=== PATIENT | female | born 2000 | race Hispanic/Latino ===

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

== ENCOUNTER 2023-07-26 23:01 | Emergency (ER) | payer OTHER ==
[2023-07-27 00:08] LABS: BHCG - Serum Negative (NEGATIVE); Pregs Control Background? CLEAR/WHITE (CLR/WHITE); Pregs Control Bar Appear? YES (CONTROL BAR)
[2023-07-27] MEDS ORDERED: Ketorolac Tromethamine 30 MG (1 mL) VIAL ONE (00:37)
[2023-07-27] MEDS ORDERED: Acetaminophen 500 MG TAB ONE (00:37)
[2023-07-27] MEDS ORDERED: Cyclobenzaprine 10 MG TAB ONE (02:27)
[2023-07-27] MEDS ORDERED: Morphine 4 MG/ML VIAL ONE (03:25)
== END 2023-07-27 04:07 | disposition home or self-care (01) ==
LOC: ERS 23:01
DX: M54.50 Low back pain, unspecified (principal)
CPT/HCPCS: 36415; 72131; 84703; 93005; 96374; 96375; J1885; J2270